=== PATIENT | male | born 1965 | race African-American/Black ===

== ENCOUNTER 2025-03-20 06:50 | Inpatient (IN) | payer MEDICAID ==
[~2025-03-20] VITALS: Ht 167.6 cm; Wt 108.4 kg
[2025-03-20] VITALS (30 sets, daily range): BP systolic 108–247; BP diastolic 80–170; PULSE 61–102; RESP 12–24; TEMP 36.5–36.9; O2SAT 94–100
[2025-03-20] MEDS: ACETAMINOPHEN 325MG TABLET PO ONE (07:34)
[2025-03-20 07:44] LABS: BASOPHILS % 1.1 % (0.0-2.0); EOSINOPHILS % 0.9 % (0.0-5.0); HEMATOCRIT. 42.4 % (42.0-52.0); HEMOGLOBIN. 14.5 g/dL (14.0-18.0); LYMPHOCYTES % 36.8 % (20.0-50.0); MEAN PLATELET VOLUME 7.2 fl (7.4-10.4); MONOCYTES % 7.6 % (2.0-8.0); NEUTROPHILS % 53.6 % (40.0-76.0); PLATELET 318 x1000/uL (130-400); RED BLOOD CELL COUNT 5.14 mill/uL (4.7-6.1); RED CELL DISTRIBUTION WIDTH 15.2 % (11.6-14.6)
[2025-03-20 08:03] LABS: CREATININE 1.2 mg/dL (0.6-1.3); UREA NITROGEN BLOOD 10 mg/dL (9-23)
[2025-03-20 08:05] LABS: ASPARTATE AMINOTRANSFERASE 21 IU/L (<34); BILIRUBIN TOTAL 0.6 mg/dL (0.1-1.0); PROTEIN TOTAL 7.7 g/dL (6.0-8.3)
[2025-03-20] MEDS: POTASSIUM CHLORIDE 20MEQ/PACKET PO ONE (08:49)
[2025-03-20 09:26] LABS: TROPONIN I HIGH SENSITIVITY 14 ng/L (3.0-53)
[2025-03-20] MEDS ORDERED: IOHEXOL-300 100 ML BOTTLE ONE (10:03)
[2025-03-20] MEDS: LABETALOL 5MG/ML 4ML INJ IV ONE (10:06)
[2025-03-20] MEDS: KCL 20MEQ/100ML PREMIX 100 ML IV SCH (10:07)
[2025-03-20] MEDS ORDERED: DOCUSATE SODIUM 100MG CAPSULE PO PRN (10:30)
[2025-03-20] MEDS ORDERED: ACETAMINOPHEN 325MG TABLET PO PRN (10:30)
[2025-03-20] MEDS ORDERED: POTASSIUM CHLORIDE 20MEQ/PACKET PO ONE (10:30)
[2025-03-20] MEDS ORDERED: IPRATROPIUM/ALBUTEROL 0.5-3(2.5)MG/3ML NEB HHN PRN (10:30)
[2025-03-20] MEDS: HYDRALAZINE 20MG/ML VIAL IV SCH (10:38)
[2025-03-20] MEDS ORDERED: KETOROLAC 15MG/ML VIAL IV SCH (10:45)
[2025-03-20] MEDS ORDERED: LORAZEPAM 2MG/ML UD SYRINGE IV PRN (12:00)
[2025-03-20] MEDS ORDERED: NICARDIPINE 50 MG in SODIUM CHLORIDE 0.9% 230 ML IV PRN (12:15)
[2025-03-20 12:25] LABS: CREATININE 1.1 mg/dL (0.6-1.3)
[2025-03-20 12:26] LABS: UREA NITROGEN BLOOD 8 mg/dL (9-23)
[2025-03-20 12:28] LABS: PHOSPHORUS 2.1 mg/dL (2.5-4.9)
[2025-03-20] MEDS ORDERED: LEVETIRACETAM 1000MG PREMIX 100 ML IV SCH (13:00)
[2025-03-20] MEDS: LEVETIRACETAM 1000MG PREMIX 100 ML IV SCH (14:40)
[2025-03-20] MEDS: POTASSIUM PHOSPHATE 20 MMOL in DEXT 5% WATER 243.3333 ML IV SCH (14:41)
[2025-03-20] MEDS: GUAIFENESIN 200MG/10ML SUGAR FREE UDC PO PRN (17:18)
[2025-03-20] MEDS: LOSARTAN 25 MG TABLET PO SCH (17:21)
[2025-03-20] MEDS: ACETAMINOPHEN 325MG TABLET PO PRN (17:22)
[2025-03-20] MEDS: HYDROCHLOROTHIAZIDE 25MG TABLET PO SCH (17:22)
[2025-03-20] MEDS: NITROGLYCERIN 50MG PREMIX 250 ML IV PRN (19:00)
[2025-03-20 19:03] LABS: TROPONIN I HIGH SENSITIVITY 22 ng/L (3.0-53)
[2025-03-20] MEDS: LEVETIRACETAM 500MG PREMIX 100 ML IV SCH (21:09)
[2025-03-20 22:21] LABS: CLARITY URINE CLEAR (CLEAR); GLUCOSE URINE NEGATIVE (NEGATIVE); KETONES URINE NEGATIVE (NEGATIVE); LEUKOCYTE ESTERASE URINE TRACE (NEGATIVE); NITRITE URINE NEGATIVE (NEGATIVE); OCCULT BLOOD URINE NEGATIVE (NEGATIVE); PH URINE 6.0 (4.5-8.0); PROTEIN URINE 1+ (NEGATIVE); SPECIFIC GRAVITY URINE 1.029 (1.005-1.030); UROBILINOGEN URINE 0.2 E.U./dL (0.2-1.0)
[2025-03-20 22:41] LABS: COLOR URINE STRAW (YELLOW)
[2025-03-20 22:42] LABS: RBC URINE NONE SEEN /hpf (0-2)
[2025-03-20 22:43] LABS: BACTERIA URINE TRACE; SQUAMOUS EPITHELIAL CELL URINE FEW /lpf (RARE/1+)
[2025-03-20 23:08] LABS: *AMPHETAMINES SCREEN URINE NEGATIVE (NEGATIVE); *BENZODIAZEPINES SCREEN URINE NEGATIVE (NEGATIVE)
[2025-03-20 23:09] LABS: *BARBITURATES SCREEN URINE NEGATIVE (NEGATIVE); *COCAINE SCREEN URINE NEGATIVE (NEGATIVE); CANNABINOID URINE SCREEN PRESUMPTIVE POSITIVE (NEGATIVE); ECSTASY MDMA SCREEN URINE NEGATIVE (NEGATIVE); METHADONE URINE SCREEN NEGATIVE (NEGATIVE); OPIATES URINE SCREEN NEGATIVE (NEGATIVE); PHENCYCLIDINE URINE SCREEN NEGATIVE (NEGATIVE)
[2025-03-20 23:44] LABS: TROPONIN I HIGH SENSITIVITY 25 ng/L (3.0-53)
[2025-03-21] VITALS (78 sets, daily range): BP systolic 140–197; BP diastolic 73–125; PULSE 70–115; RESP 7–30; TEMP 36.6–37.2; O2SAT 92–100
[2025-03-21 06:09] LABS: BASOPHILS % 0.6 % (0.0-2.0); EOSINOPHILS % 0.1 % (0.0-5.0); HEMATOCRIT. 39.1 % (42.0-52.0); HEMOGLOBIN. 13.2 g/dL (14.0-18.0); LYMPHOCYTES % 13.3 % (20.0-50.0); MEAN PLATELET VOLUME 7.1 fl (7.4-10.4); MONOCYTES % 7.3 % (2.0-8.0); NEUTROPHILS % 78.7 % (40.0-76.0); PLATELET 290 x1000/uL (130-400); RED BLOOD CELL COUNT 4.70 mill/uL (4.7-6.1); RED CELL DISTRIBUTION WIDTH 15.0 % (11.6-14.6)
[2025-03-21 06:27] LABS: TROPONIN I HIGH SENSITIVITY 26 ng/L (3.0-53)
[2025-03-21 06:28] LABS: CREATININE 1.1 mg/dL (0.6-1.3); TRIGLYCERIDE 79 mg/dL (0-150); UREA NITROGEN BLOOD 10 mg/dL (9-23)
[2025-03-21 06:29] LABS: LDL CHOLESTEROL 137 mg/dL (5-100)
[2025-03-21 06:30] LABS: ASPARTATE AMINOTRANSFERASE 14 IU/L (<34); BILIRUBIN DIRECT 0.3 mg/dL (<=3.0); BILIRUBIN TOTAL 1.2 mg/dL (0.1-1.0); PHOSPHORUS 3.4 mg/dL (2.5-4.9); PROTEIN TOTAL 6.8 g/dL (6.0-8.3)
[2025-03-21 06:31] LABS: T4 FREE 1.18 ng/dL (0.89-1.76)
[2025-03-21] MEDS: MORPHINE SULFATE 4 MG/ML INJ (FOR IV/IM USE) IV SCH (08:44)
[2025-03-21] MEDS: LOSARTAN 50 MG TABLET PO SCH (09:30)
[2025-03-21] MEDS: POTASSIUM CHLORIDE 20MEQ/PACKET PO NR (10:04)
[2025-03-21] MEDS: PANTOPRAZOLE SODIUM 40 MG/VIAL IV SCH (10:05)
[2025-03-21] MEDS ORDERED: NALOXONE HCL 0.4MG/ML VIAL IV PRN (10:45)
[2025-03-21] MEDS: KCL 20MEQ/100ML PREMIX 100 ML IV SCH (10:49)
[2025-03-21] MEDS: CLONIDINE 0.1MG TABLET PO PRN (16:25)
[2025-03-21] MEDS: HYDROCHLOROTHIAZIDE 25MG TABLET PO SCH (17:15)
[2025-03-21] MEDS: MORPHINE SULFATE 4 MG/ML INJ (FOR IV/IM USE) IV PRN (19:51)
[2025-03-21] MEDS: ONDANSETRON HCL 4MG/2ML INJ IV PRN (19:51)
[2025-03-21] MEDS: CLONIDINE 0.1MG TABLET PO SCH (19:52)
[2025-03-21 20:42] LABS: CREATININE 1.1 mg/dL (0.6-1.3); UREA NITROGEN BLOOD 8 mg/dL (9-23)
[2025-03-21] MEDS ORDERED: IOHEXOL-350 100 ML BOTTLE ONE (22:57)
[2025-03-22] VITALS (100 sets, daily range): BP systolic 97–198; BP diastolic 51–167; PULSE 58–101; RESP 11–31; TEMP 36.6–37.2; O2SAT 90–100
[2025-03-22 06:33] LABS: BASOPHILS % 0.4 % (0.0-2.0); EOSINOPHILS % 0.5 % (0.0-5.0); HEMATOCRIT. 37.5 % (42.0-52.0); HEMOGLOBIN. 12.6 g/dL (14.0-18.0); LYMPHOCYTES % 22.1 % (20.0-50.0); MEAN PLATELET VOLUME 7.6 fl (7.4-10.4); MONOCYTES % 12.5 % (2.0-8.0); NEUTROPHILS % 64.5 % (40.0-76.0); PLATELET 289 x1000/uL (130-400); RED BLOOD CELL COUNT 4.46 mill/uL (4.7-6.1); RED CELL DISTRIBUTION WIDTH 15.1 % (11.6-14.6)
[2025-03-22 06:53] LABS: CREATININE 1.4 mg/dL (0.6-1.3); TROPONIN I HIGH SENSITIVITY 18 ng/L (3.0-53); UREA NITROGEN BLOOD 11 mg/dL (9-23)
[2025-03-22] MEDS: KETOROLAC 30MG/ML VIAL IV PRN (10:30)
[2025-03-22 11:23] LABS: PHOSPHORUS 2.9 mg/dL (2.5-4.9)
[2025-03-22] MEDS: POTASSIUM CHLORIDE 20MEQ TABLET SR PO SCH (12:00)
[2025-03-22] MEDS: MAGNESIUM OXIDE 400MG TABLET PO SCH (12:34)
[2025-03-22] MEDS: NITROGLYCERIN OINT 1GM/INCH UDPKT TD SCH (12:34)
[2025-03-23] VITALS (81 sets, daily range): BP systolic 34–204; BP diastolic 16–142; PULSE 48–92; RESP 12–26; TEMP 36.6–37.4; O2SAT 89–100
[2025-03-23 06:35] LABS: BASOPHILS % 0.8 % (0.0-2.0); EOSINOPHILS % 2.5 % (0.0-5.0); HEMATOCRIT. 38.0 % (42.0-52.0); HEMOGLOBIN. 12.8 g/dL (14.0-18.0); LYMPHOCYTES % 30.8 % (20.0-50.0); MEAN PLATELET VOLUME 7.7 fl (7.4-10.4); MONOCYTES % 11.3 % (2.0-8.0); NEUTROPHILS % 54.6 % (40.0-76.0); PLATELET 282 x1000/uL (130-400); RED BLOOD CELL COUNT 4.49 mill/uL (4.7-6.1); RED CELL DISTRIBUTION WIDTH 14.8 % (11.6-14.6)
[2025-03-23 06:52] LABS: CREATININE 1.4 mg/dL (0.6-1.3); UREA NITROGEN BLOOD 17 mg/dL (9-23)
[2025-03-23] MEDS: NITROGLYCERIN OINT 1GM/INCH UDPKT TD SCH (16:24)
[2025-03-23] MEDS: CLONIDINE 0.1MG TABLET PO SCH (19:11)
[2025-03-24] VITALS: BP 145/98; PULSE 74; RESP 20; TEMP 36.7; O2SAT 98
[2025-03-24] MEDS: HYDROCODONE/ACETAMINOPHEN 5/325MG TABLET PO NR (01:56)
[2025-03-24 04:00] VITALS: BP 167/90; PULSE 74; RESP 20; TEMP 36.5; O2SAT 98
[2025-03-24 08:16] VITALS: BP 179/95; PULSE 71; RESP 20; TEMP 36.6; O2SAT 95
[2025-03-24 08:38] LABS: CREATININE 1.2 mg/dL (0.6-1.3); UREA NITROGEN BLOOD 16 mg/dL (9-23)
[2025-03-24 08:47] LABS: BASOPHILS % 0.7 % (0.0-2.0); EOSINOPHILS % 3.0 % (0.0-5.0); HEMATOCRIT. 38.8 % (42.0-52.0); HEMOGLOBIN. 13.3 g/dL (14.0-18.0); LYMPHOCYTES % 33.1 % (20.0-50.0); MEAN PLATELET VOLUME 7.7 fl (7.4-10.4); MONOCYTES % 9.5 % (2.0-8.0); NEUTROPHILS % 53.7 % (40.0-76.0); PLATELET 313 x1000/uL (130-400); RED BLOOD CELL COUNT 4.64 mill/uL (4.7-6.1); RED CELL DISTRIBUTION WIDTH 14.5 % (11.6-14.6)
[2025-03-24] MEDS: HYDROCHLOROTHIAZIDE 25MG TABLET PO SCH (09:21)
[2025-03-24] MEDS: MORPHINE SULFATE 10 MG/ML INJ (NOT FOR IM USE) IV PRN (10:25)
[2025-03-24 11:57] VITALS: BP 134/77; PULSE 74; RESP 20; TEMP 36.6; O2SAT 99
[2025-03-24] MEDS: POTASSIUM CHLORIDE 20MEQ TABLET SR PO SCH (12:04)
[2025-03-24] MEDS: NITROGLYCERIN OINT 1GM/INCH UDPKT TD SCH (14:04)
[2025-03-24 16:00] VITALS: BP 159/91; PULSE 69; RESP 20; TEMP 36.4; O2SAT 98
[2025-03-24 20:07] VITALS: BP 175/102; PULSE 82; RESP 20; TEMP 36.4; O2SAT 95
[2025-03-25] VITALS: BP_SYST 143; BP_SYST 175; BP_DIAS 100; BP_DIAS 78; PULSE 75; PULSE 88; RESP 20; TEMP 36.6; TEMP 36.7; O2SAT 97; O2SAT 99
[2025-03-25 04:00] VITALS: BP 140/82; PULSE 76; RESP 20; TEMP 36.3; O2SAT 98
[2025-03-25 08:00] VITALS: BP 159/109; PULSE 68; RESP 20; TEMP 36.6; O2SAT 98
[2025-03-25 12:43] VITALS: BP 170/107; PULSE 74; RESP 18; TEMP 37.1; O2SAT 98
[2025-03-25] MEDS: CLONIDINE 0.2MG TABLET PO SCH (14:00)
[2025-03-25 16:00] VITALS: BP 186/116; PULSE 76; RESP 22; TEMP 37.1; O2SAT 96
[2025-03-25 20:00] VITALS: BP 158/105; PULSE 79; RESP 20; TEMP 36.6; O2SAT 97
[2025-03-26] VITALS: BP 144/85; PULSE 65; RESP 20; TEMP 36.6; O2SAT 97
[2025-03-26 04:00] VITALS: BP 147/87; PULSE 69; RESP 20; TEMP 36.5; O2SAT 100
[2025-03-26 08:00] VITALS: BP 148/78; PULSE 75; RESP 16; TEMP 36.6; O2SAT 97
[2025-03-26 08:10] LABS: CREATININE 1.1 mg/dL (0.6-1.3); UREA NITROGEN BLOOD 16 mg/dL (9-23)
[2025-03-26] MEDS: TRAMADOL 50MG TABLET PO PRN (10:16)
[2025-03-26 12:00] VITALS: BP 201/103; PULSE 85; RESP 20; TEMP 36.4; O2SAT 98
[2025-03-26 14:42] VITALS: BP 178/89; PULSE 80; RESP 17; TEMP 97.8
[2025-03-26 15:35] VITALS: BP 155/78; PULSE 81; RESP 20; TEMP 36.4; O2SAT 100
== END 2025-03-26 15:25 | disposition home or self-care (01) | DRG 52 ==
LOC: EDSEX 06:50 → ER 06:50 → 3WST 09:57 → CVICU 11:45 → 7WST 03-23 20:35
PROVIDERS: ADMIT Hospitalist; ATTEND Hospitalist
PROC: 5A09357 Assistance with Respiratory Ventilation, Less than 24 Consecutive Hours, Continuous Positive Airway Pressure (ICD-10-PCS; principal; 2025-03-21)
PROC: 4A00X4Z Measurement of Central Nervous Electrical Activity, External Approach (ICD-10-PCS; 2025-03-21)
PROC: 5A09357 Assistance with Respiratory Ventilation, Less than 24 Consecutive Hours, Continuous Positive Airway Pressure (ICD-10-PCS; 2025-03-23)
DX: I67.4 Hypertensive encephalopathy (principal); J96.01 Acute respiratory failure with hypoxia; S09.90XA Unspecified injury of head, initial encounter; I16.1 Hypertensive emergency; R56.9 Unspecified convulsions; M48.03 Spinal stenosis, cervicothoracic region; E83.39 Other disorders of phosphorus metabolism; K76.0 Fatty (change of) liver, not elsewhere classified; E66.9 Obesity, unspecified; I11.9 Hypertensive heart disease without heart failure; Z68.38 Body mass index [BMI] 38.0-38.9, adult; E11.649 Type 2 diabetes mellitus with hypoglycemia without coma; S33.5XXA Sprain of ligaments of lumbar spine, initial encounter; E87.6 Hypokalemia; M25.78 Osteophyte, vertebrae; M47.813 Spondylosis without myelopathy or radiculopathy, cervicothoracic region; R59.0 Localized enlarged lymph nodes; X58.XXXA Exposure to other specified factors, initial encounter; Z91.148 Patient's other noncompliance with medication regimen for other reason; Z83.3 Family history of diabetes mellitus; Z79.899 Other long term (current) drug therapy; Y93.89 Activity, other specified; Y92.89 Other specified places as the place of occurrence of the external cause; Y99.8 Other external cause status
CPT/HCPCS: 36415; 71045; 71275; 73030; 73502; 73562; 74177; 80048; 80053; 80061; 80076; 80305; 81003; 82550; 82962; 83036; 83735; 84100; 84132; 84133; 84439; 84443; 84484; 85025; 93005; 93306; 93970; 94070; 94660; 94664; 95816; 97165; 97530; 97535; 99291; A4606; J0360; J1885; J1953; J2270; J2405; J2470; J3480; J3490; J7050; J7060; Q9967